=== PATIENT | female | born 1940 | race Caucasian/White ===

== ENCOUNTER 2020-06-22 13:15 | Outpatient (CLI) | payer MEDICARE, BC ==
[~2020-06-22 13:15] MED LIST: ACET-2615 PO; ATEN50TA PO; CARB-87 PO; CHOL400T PO; COU4T PO; CYAN-51 PO; DET2T PO; DICL100G15 TOP; DIGO-28 PO; FISH12002 PO; FLEC100T2 PO; FURO-150 PO; GLUC100017 PO; LORA-269 PO; MAGN100T5 PO; OSC500T PO; RIOC2TAB PO; SPIR25TA5 PO
== END 2020-06-22 23:59 | disposition home or self-care (01) ==
LOC: CARD DIAG 13:15
PROVIDERS: ATTEND Internal Medicine Cardiovascular Disease
DX: I08.8 Other rheumatic multiple valve diseases (principal); I50.30 Unspecified diastolic (congestive) heart failure
CPT/HCPCS: 93306